=== PATIENT | male | born 1970 | race African-American/Black ===

== ENCOUNTER 2018-09-02 11:29 | Emergency (ER) | payer SELFPAY ==
[~2018-09-02] VITALS: Ht 182.9 cm; Wt 117.9 kg
[2018-09-02 12:23] VITALS: BP 139/84
== END 2018-09-02 13:06 | disposition home or self-care (01) ==
LOC: ER 11:33
DX: H10.32 Unspecified acute conjunctivitis, left eye (principal)

== ENCOUNTER 2018-09-17 01:20 | Emergency (ER) | payer SELFPAY ==
[~2018-09-17] VITALS: Ht 182.9 cm; Wt 117.9 kg
[2018-09-17 01:31] VITALS: BP 148/85
[2018-09-17 02:26] LABS: Basophils # (auto) 0 uL; Basophils % (auto) 0.7 % (0.0-2.0); Eosinophils # (auto) 0.1 uL; Hematocrit 43.8 % (41.0-53.0); Hemoglobin 14.3 g/dL (13.5-17.5); Lymphocytes # (auto) 2.3 uL; Mean Corpuscular Hemoglobin 28.4 pg (28.0-32.0); Mean Corpuscular Hgb Conc. 32.7 g/dL (32.0-36.0); Mean Corpuscular Volume 86.8 fL (80.0-100.0); Monocytes # (auto) 0.4 uL; Monocytes % (auto) 6.3 % (0.0-12.0); Neutrophils # (auto) 3.4 uL; Platelet Count (auto) 193 10^3/uL (140-450); Red Blood Cells 5.04 10^6/uL (4.5-5.90); White Blood Cell 6.3 10^3/uL (4.4-10.8)
[2018-09-17 02:46] LABS: Alanine Aminotransferase 31 U/L (16-61); Albumin 3.5 g/dL (3.4-5.0); Anion Gap 5 (5-15); Aspartate Aminotransferase 19 U/L (15-37); BUN/Creatinine Ratio 13.1; Blood Urea Nitrogen 19 mg/dL (7-18); Calcium 8.6 mg/dL (8.5-10.1); Carbon Dioxide 27 mmol/L (21-32); Chloride 106 mmol/L (98-107); GFR African American 67 mL/min; GFR Non-African American 55 mL/min; Glucose 114 mg/dL (74-106); Magnesium 2.3 mg/dL (1.6-2.6); Potassium 3.6 mmol/L (3.5-5.1); Sodium 138 mmol/L (136-145)
[2018-09-17 02:51] LABS: Alkaline Phosphatase 77 U/L (45-117); Bilirubin, Total 0.2 mg/dL (0.2-1.0); Total Protein 7.4 g/dL (6.4-8.2)
== END 2018-09-17 04:02 | disposition left against medical advice (07) ==
LOC: ER 01:25
DX: R07.89 Other chest pain (principal); R11.0 Nausea; Z53.21 Procedure and treatment not carried out due to patient leaving prior to being seen by health care provider
CPT/HCPCS: 36415; 71045; 80053; 83735; 84443; 84484; 85025